=== PATIENT | male | born 2000 | race Two or more races ===

== ENCOUNTER 2023-03-06 15:04 | Emergency (ER) | payer MEDICAID, OTHER ==
[~2023-03-06] VITALS: Ht 182.9 cm; Wt 230.0 kg
[2023-03-06 15:04] VITALS: TEMP 78
[2023-03-06 15:13] VITALS: BP 0/0; PULSE 0; RESP 0; O2SAT 0
[2023-03-06] MEDS ORDERED: EPINEPHrine HCL 1 MG/10 ML SYRG ONE ×2 (15:23→15:53)
== END 2023-03-06 20:36 ==
LOC: EDBD 15:04 → ER 15:04
DX: I46.9 Cardiac arrest, cause unspecified (principal)
CPT/HCPCS: 92950; 99285; J0171